=== PATIENT | male | born 1965 | race Caucasian/White ===

== ENCOUNTER 2018-05-02 09:49 | Emergency (ER) | payer OTHER ==
[2018-05-02] MEDS: CEPHALEXIN 500 MG CAP PO (10:51)
[2018-05-02] MEDS: TRIMETHOPRIM/SULFAMETHOX (DS) TAB PO (10:51)
== END 2018-05-02 11:11 | disposition home or self-care (01) ==
LOC: FTE 09:49
DX: L03.317 Cellulitis of buttock (principal)
CPT/HCPCS: 99284; Z7502